=== PATIENT | male | born 1965 | race Caucasian/White ===

== ENCOUNTER 2017-01-22 15:09 | Emergency (ER) | payer OTHER ==
--- NOTE | 2017-02-05 15:51 | ER ---
ADMIT: 01/22/2017 RM/LOC: ER [facility] MR#: [id number] [id number] [facility] MER[facility] [address] [place] [address] Emergency Room Report SEX: M AGE: 51 : 1965 DATE: 01/22/2017 CHIEF COMPLAINT: Ear cut. 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 States he was using a harrow, when he got caught up in it sustaining a cut just anterior to his left ear. States he went home to his , brought him here immediately for further management. 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 He also reports he has some cuts on his back. COURSE IN THE EMERGENCY ROOM: The patient was examined. GENERAL: Afebrile nontoxic. No acute distress. HEAD: Normocephalic and atraumatic. EYES: Equal and reactive. NECK: Soft and nontender. No pain with movement. ENT: He does have a 1.5 cm laceration just anterior to the left ear, linear in nature. Lightly bleeding. PROCEDURE NOTE: Laceration repair, 1.5 cm linear laceration just anterior to left ear. Anesthetized with 5 mL lidocaine, prepped with Betadine and UltraDEX, irrigated with saline and explored to the base. No obvious foreign bodies, repaired using six 5-0 Prolene sutures. Wound edges were well everted. Wound was clean and dressing was applied. I did check his INR today, 2.1, made no recommendations for change to this. IMPRESSION: Laceration. DISPOSITION: Patient was discharged to follow up with Dr. Torito Martinez in 5 to 7 days to have sutures removed. Monitor for infection. Follow up with Dr. Martinez's sooner with any concerns. Tylenol as needed for pain. Keep clean and dry, covered for 24 hours. Questions sought and answered to best of my ability and patient's satisfaction. Discharged in stable condition. ALEX Agarwal / Richard Moser MD / ramy JOB #: [id number] CC: Kevin Pham MD, Attending Physician Torito Martinez MD, Family Physician
== END 2017-01-22 16:10 | disposition home or self-care (01) ==
LOC: ER 15:09
PROC: 0HQ3XZZ Repair Left Ear Skin, External Approach (ICD-10-PCS; principal; 2017-01-22)
DX: S01.312A Laceration without foreign body of left ear, initial encounter (principal); Z79.01 Long term (current) use of anticoagulants; Z86.718 Personal history of other venous thrombosis and embolism; Z88.8 Allergy status to other drugs, medicaments and biological substances; W26.8XXA Contact with other sharp object(s), not elsewhere classified, initial encounter; Z23 Encounter for immunization